=== PATIENT | male | born 1960 | race Caucasian/White ===

== ENCOUNTER 2025-06-09 04:34 | Emergency (ER) | payer OTHER ==
[2025-06-09] MEDS ORDERED: Dexamethasone 10 MG/ML VIAL ONE (05:00)
== END 2025-06-09 05:35 | disposition home or self-care (01) ==
LOC: MADERS 04:34
DX: J44.1 Chronic obstructive pulmonary disease with (acute) exacerbation (principal); E11.9 Type 2 diabetes mellitus without complications; F17.210 Nicotine dependence, cigarettes, uncomplicated; Z79.85 Long-term (current) use of injectable non-insulin antidiabetic drugs; Z79.84 Long term (current) use of oral hypoglycemic drugs
CPT/HCPCS: 71045; 96372; J1100